=== PATIENT | male | born 1965 | race Caucasian/White ===

== ENCOUNTER 2019-10-20 16:30 | Outpatient (RCR) | payer OTHER, SELFPAY ==
[2018-09-29 14:46] VITALS: BMI 21.1
--- NOTE | 2019-09-10 16:22 | HP.PTEVAL ---
Patient's Visit Information NITHIN OLMEDO is a 53 year old M referred to Physical Therapy by Dr. Josiane Saldaña MD with a diagnosis of Ischial Bursitis of L side. Date of Evaluation: 09/10/19 Physical Therapist: LADONNA Singh - Visit Plan Frequency: 2x /Week Duration: 6 Weeks Plan: 2X/ week for 6 weeks for centralization of symptoms using extension priniciple, neutral spine core stability, postural exercises with HEP and modalities as needed.... also once we have centralization work on L foot DF strengthening exercises. - Subjective Findings: Pt reports that he has a pain in his butt on the L side and she gave him a shot. The next night was better. Sunday he could not sit to drive to [place]. He is not sure if the shot has helped or not. Once he gets up and walk around for awhile he feels fine and when he gets home this evening... he will be able to go to sleep but he will wake up in the middle of the night. He sleeps on his R side. Sitting is the worst. He points to the lateral side of his hip and he feels that it is coming on and then stays there until he stands up. He has back pain that started Sunday but no back pain today. He started to get cramping in his legs last night. He feels like he is slapping his L foot with walking but he feels that it might be getting better. - Pain L hip pain Pain Intensity (Out of 10): 4 Comment: the longer he sits on it the worse it gets Back pain Pain Intensity (Out of 10): 2 - Objective Gait: decreased ability to picker tender helper his L foot with gait. LE MMT: B hip flex 4/5, L hip abd 4-/5 and R 4/5, B hip ext 4/5, B knee flex and knee ext 4+/5. Unable to toe raise on the L but able to heel raise B. Trunk AROM: Flexion 75%, ext 75%, SB B 75%, Rot B 75%. Repeated flexion in sitting X 3 and his L buttock pain increased and then Repeated extension in standing X 10 and his pain went away. Tried sitting with extreme upright posture and made his pain not come back as quick. +SLR on the L for L groin pain. + SLUMP test on the L for the same type of pain that he has been having in his L hip. Press ups 3 X 10.... pt's had no buttock pain and he was able to raise his L foot up higher than he could at first. Explained proper posture and upright posture to the pt and demonstrated the improtance of a towel roll when sitting and no use of bucket seats in his car. - Goals Goal 1:: STG: I HEP Goal Time Frame: 2-4 Weeks Goal 2:: STG: decrease buttock pain by 50% Goal Time Frame: 2-4 Weeks Goal 3:: LTG: abolish symptoms to be able to sleep through the night and be able to drive for 30 minutes with out the pain. Goal Time Frame: 4-6 Weeks Goal 4:: Increase L hip abd strength and L DF strength by 1/2 muscle grade (LE MMT: B hip flex 4/5, L hip abd 4-/5 and R 4/5, B hip ext 4/5, B knee flex and knee ext 4+/5. Unable to toe raise on the L but able to heel raise B). Goal Time Frame: 4-6 Weeks - Rehabilitation Potential Rehabilitation Potential: Good - Anticipated Interventions Patient/Client Instruction: Educate patient on: Condition, Plan of Care For the Purpose of:: To decrease pain, To decrease swelling/inflammation, To increase ROM, To improve nutrient delivery to tissue, To increase oxygenation perfusion, To improve muscle performance and motor function, To improve ability to perform ADL's, To increase tolerance to activity/condition/position, To improve performance and independence with ADL's, To improve ability of physical actions for home/community/work/leisure, To improve gait and locomotor functions, To increase flexibility/ROM Therapeutic Exercise to Include: Strength training, Body mechanics, Postural training, Flexibilty training, Neuromotor development, Passive ROM, Active ROM, Dynamic Lumbar Stabilization, Nolberto Exercises For the Purpose of:: To decrease pain, To increase ROM, To improve nutrient delivery to tissue, To improve muscle performance and motor function, To improve ability to perform ADL's, To increase tolerance to activity/condition/position, To decrease level of supervision to perform tasks, To improve ability of physical actions for home/community/work/leisure, To increase flexibility/ROM Manual Therapy Techniques to Include: Mobilization For the Purpose of:: To decrease pain, To increase ROM, To improve nutrient delivery to tissue, To improve muscle performance and motor function, To improve ability to perform ADL's, To increase tolerance to activity/condition/position, To improve ability of physical actions for home/community/work/leisure, To improve health of tissue, To decrease soft tissue restriction IF ES: Yes Cryotherapy (ice pack, ice massage): Yes Thermo therapy (hot pack): Yes For the Purpose of:: To decrease pain, To decrease swelling/inflammation, To increase ROM, To improve nutrient delivery to tissue Thank you for the opportunity to evaluate your patient. For Medicare and Medicare HMO plans, please review the plan of care and approve it. It will need to be FAXED BACK to us at [phone] for Medicare purposes. For Medicare only, by signing this I certify the plan of care. Please let me know if there are questions or concerns regarding this plan of care. Physician Signature: Date:
--- NOTE | 2019-10-20 16:45 | HP.PTDCSUM ---
HP - PT D/C Summary It has been my pleasure to treat NITHIN OLMEDO under orders from Dr. Josiane Saldaña MD, for the diagnosis of Ischial Bursitis of L side for a total of 9 visit(s). Discharge Date: Please see the following information for a summary of their discharge status. - Subjective Subjective: Patient reports that he has no pain- he overdid a lot this weekend and he went walking in the [place]- no pain. Does not feel any leg weakness or drop foot. No problems with driving. Sleeping through the night and no soreness in the AM. Is able to do the exercises in the AM without issues or questions. - Pain L hip pain Pain Intensity (Out of 10): 4 Back pain Pain Intensity (Out of 10): 3 - Overall Improvement % Improvement: 100 - Objective Objective/Function: Gait: no deviation noted- no foot slap. LE MMT: B hip flex 4+/5, L hip abd 4/5 and R 4+/5, B hip ext 4+/5, B knee flex and knee ext 5/5 DF: left: 4/5, right: 5/5. HR/TR: able but TR is diminished by 50% on the left Trunk AROM: WNL in all planes. Sensation/Reflex: WNL, Flex: hamstring: moderate Gastroc: mild - Goals Goal 1:: STG: I HEP Goal Progress: Goal Met Goal 2:: STG: decrease buttock pain by 50% Goal Progress: Goal Met Goal 3:: LTG: abolish symptoms to be able to sleep through the night and be able to drive for 30 minutes with out the pain. Goal Progress: Goal Met Goal 4:: Increase L hip abd strength and L DF strength by 1/2 muscle grade (LE MMT: B hip flex 4/5, L hip abd 4-/5 and R 4/5, B hip ext 4/5, B knee flex and knee ext 4+/5. Unable to toe raise on the L but able to heel raise B). Goal Progress: Goal Met - Plan Plan: Discharge to home exercise program - D/C Information If there are questions or concerns regarding this patient's physical therapy, please feel free to call me at [phone]. Thank you for the referral of this patient. Sincerely, Valentina Moreau DPT
== END 2019-10-20 19:00 | disposition home or self-care (01) ==
LOC: PT 16:30
PROVIDERS: Family Provider Family Medicine; PCP Family Medicine; Referring Provider Family Medicine; Visit Provider Family Medicine
DX: M70.72 Other bursitis of hip, left hip (principal)
CPT/HCPCS: 97110; 97161; 97164

== ENCOUNTER → 2019-11-05 09:34 | Outpatient (CLI) | payer OTHER, SELFPAY ==
[2018-09-29 14:46] VITALS: BMI 21.1
[2019-11-05 12:42] LABS: Anion Gap 5 (5-15); BUN 10 mg/dL (7-18); BUN/Creat Ratio 12.4 RATIO (10-20); Calcium,Total 8.9 mg/dL (8.5-10.1); Chloride 111 mmol/L (98-107); Cholesterol 167 mg/dL (200); EST Glomerular Filtration Rate 107 mL/min (>60); Est Glom Filt Rate - Afr Amer 130 mL/min (>60); Glucose 102 mg/dL (74-106); High Density Lipoprotein 35 mg/dL; Potassium 4.3 mmol/L (3.5-5.1); Sodium Level 140 mmol/L (136-145); Triglycerides 109 mg/dL; Very Low Density Lipoprotein 22 mg/dL (5-40)
== END ==
PROVIDERS: PCP Family Medicine; Referring Provider Family Medicine; Visit Provider Nurse Practitioner Adult Health
DX: Z13.1 Encounter for screening for diabetes mellitus (principal); Z13.220 Encounter for screening for lipoid disorders
CPT/HCPCS: 36415; 80048; 80061

== ENCOUNTER 2020-01-12 07:34 | Day surgery (SDC) | payer OTHER, SELFPAY ==
[2019-12-29 14:57] VITALS: BMI 21.1
--- NOTE | 2019-12-30 10:29 | HP_ITS ---
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 Chris London MD) Smoking Status: Current every day smoker alcohol intake: current alcohol intake frequency: a few times a week substance use type: marijuana HPI HPI HPI: NITHIN OLMEDO is a 54 M who presents to the office today for HPI HPI Surgical H&P: Yes HPI: thomas CRAVEN a 54 M who presents to the office today for Evaluation for a positive Cologuard test. Patient was seen by his primary care physician Cologuard test was positive.He has not noticed any change in his bowel or bladder habits. His father had colon cancer at age 62 and with metastatic disease at age 66. ROS General General: No weight change, appetite, fatigue, colon cancer, breast cancer or weakness HEENT HEENT: No difficulty swallowing, eye injury, eye surgery, swollen glands or hoarseness Endo Endocrine: No thyroid disease, diabetes mellitus, thyroid cancer, Hair loss, heat intolerance or cold intolerance Skin Skin: No rash or changing moles Breast Breast: No left breast lump, right breast lump, nipple discharge, breast pain, abnormal mammogram, abnormal US or breast enlargement Musc Musculoskeletal: Yes back problems; no arthritis, rheumatoid arthritis, gout or joint pain Cardio Cardiovascular: No murmur, pacemaker, heart disease, atrial fibrillation, high blood pressure, heart attack, heart stent, palpitations, shortness of breat with exertion or chest pain Psych Psychiatric: No depression, anxiety or hearing voices Resp Respiratory: No shortness of breath, No sleep apnea, No cough, No COPD, No asthma, No emphysema, No wheezing Gastro Gastrointestinal: No abdominal pain, No nausea or vomiting, No diarrhea, No constipation, No blood in stool, No acid reflux, No hemorrhoids, No ulcers, No gallbladder problem, No black,tarry stools Callum Hematologic: No blood thinners, No blood disorders, No bleeding, No anemia, No blood clots Neuro Neurologic: No system reviewed and no additional complaints, except as docu, No as per HPI, No abnormal walking, No abnormal hearing, No abnormal movements, No abnormal speech, No behavioral changes, No burning sensations, No confusion, No seizure-like activity, No unsteadiness, No dizziness, No localized weakness, No frequent falls, No headache(s), No lack of coordination, No loss of vision, No memory loss, No numbness, No other visual disturbances, No radiating pain, No restless legs, No sensory deficit, No fainting, No tingling, No tremor(s), No weakness, No other Exam Const General: no acute distress, well developed, well hydrated Orientation: oriented to person, oriented to place, oriented to time [facility] Head: normocephalic, atraumatic Ears: external ears normal Mouth: moist mucous membranes Eyes Sclera: sclerae normal Pupils: normal by confrontation Neck Neck: no lymphadenopathy noted Neck mass: No Thyroid: thyroid normal, symmetrical Chest Chest palpation & inspection: normal inspection of the chest Breast Palpation: No nipple discharge Resp Effort & Inspection: normal respiratory effort Auscultation: clear to auscultation bilaterally Percussion: percussion normal Cardio Rate: regular rate Rhythm: regular rhythm Heart Sounds: no murmurs GI Palpation: soft, no hepatosplenomegaly, no masses, nontender Rectal Exam: other Other: Rectal exam deferred. Extrem General: normal to inspection, no clubbing, cyanosis or edema Assessment & Plan Problems 1. Positive colorectal cancer screening using Cologuard test R19.5 Plan I have discussed the above with the patient. I have offered the patient colonoscopy for evaluation. I have explained the risks/benefits of the procedure and described the procedure. I have discussed the risks with the patient, including but not limited to: infection, bleeding, perforation of the GI tract requiring emergency surgery, inability to complete the procedure, injury to any internal organs, complications of anesthesia, etc. - the patient understands and agrees to proceed. I have answered all the patient's questions to the patient's satisfaction and the patient has no further questions. The patient has been given instructions for the colon cleansing preparation. Coding Level of Care Code Off vis,new,level 3 Diagnoses Positive colorectal cancer screening using Cologuard test R19.5 12/30/19 1030 <Electronically signed by Chris London MD> Date Chris London MD I have re-examined the patient. There are no clinical changes since date of exam.
[2020-01-12] VITALS (7 sets, daily range): BP systolic 101–127; BP diastolic 72–91; PULSE 64–91; RESP 15–18; TEMP 36.2–36.7; O2SAT 94–99; BMI 22.1
[2020-01-12] MEDS: Lactated Ringers 1,000 ML 100 ML IV (08:14)
--- NOTE | 2020-01-12 08:45 | COLBX_PTH ---
PATIENT: NITHIN OLMEDO LOC: EN U#:[id number] AGE/SX: 54/M ROOM: RE01/12/[address]: Dr. Chris London MD : 1965 BED: DIS: 01/12/2020 SPEC #: [id number] RECD: 01/12/20 13:29 STATUS: MILES REJocelynn #: [id number] MICHELLE: 01/12/20 08:[address]: Chris London DEPT: SURGICAL PATHOLOGY RECD BY: Warren Can ENTERED: 01/13/20 09:20 SP TYPE: COLON BX OTHR DR: Dr. Josiane Saldaña MD Tissues: Sigmoid colon biopsy Procedures: Surgery Specimen Level IV HEADER OPERATION: Colonoscopy (MAC) PRE-OP DIAGNOSIS: Positive Cologuard test TISSUE SUBMITTED: Sigmoid colon polyp MICROSCOPIC DIAGNOSIS Sigmoid colon polyp, biopsy: Tubular adenoma. SJ:jose 01/14/20 MICROSCOPIC DESCRIPTION Slides are reviewed. GROSS DESCRIPTION Received in fixative is one container labeled with the patient's name and designated sigmoid polyp. The specimen consists of a piece of trevino-pink polyp measuring 1.5 x 1.5 x 0.8 cm. The apparent base is inked. The polyp is serially and submitted entirely in one cassette. / SJ:rg 01/13/20 TC:1 CPT: 07269
--- NOTE | 2020-01-12 09:19 | OP.COLON_ITS ---
Patient Name: Real Jones Procedure Date: 01/12/2020 8:51 AM Date of : 1965 Age: 54 Procedure: Colonoscopy Indications: Positive Cologuard test Providers: Chris London MD Referring MD: Josiane Saldaña Medicines: See the Anesthesia note for documentation of the administered medications Patient Profile: This is a 54 year old male. Refer to note in patient chart for documentation of history and physical. Last Colonoscopy: none. The patient's first colonoscopy is today. Complications: No immediate complications. Procedure: Pre-Anesthesia Assessment: - Prior to the procedure, a History and Physical was performed, and patient medications and allergies were reviewed. The patient's tolerance of previous anesthesia was also reviewed. The risks and benefits of the procedure and the sedation options and risks were discussed with the patient. All questions were answered, and informed consent was obtained. Prior Anticoagulants: The patient has taken no previous anticoagulant or antiplatelet agents. ASA Grade Assessment: II - A patient with mild systemic disease. After reviewing the risks and benefits, the patient was deemed in satisfactory condition to undergo the procedure. After I obtained informed consent, the scope was passed under direct vision. Throughout the procedure, the patient's blood pressure, pulse, and oxygen saturations were monitored continuously. The adult colonoscope was introduced through the anus and advanced to the cecum, identified by appendiceal orifice and ileocecal valve. The colonoscopy was performed without difficulty. The patient tolerated the procedure well. The quality of the bowel preparation was good. Scope In: 9:01:12 AM Scope Withdrawal Time 0 hours 9 minutes 43 seconds Scope Out: 9:13:12 AM Total Procedure Duration Time 0 hours 12 minutes 0 seconds Findings: A 15 mm polyp was found in the sigmoid colon. The polyp was sessile. The polyp was removed with a hot snare. Resection and retrieval were complete. The entire examined colon appeared normal on direct and retroflexion views. Impression: - One 15 mm polyp in the sigmoid colon, removed with a hot snare. Resected and retrieved. - The entire examined colon is normal on direct and retroflexion views. Recommendation: - Discharge patient to home. - Resume previous diet. - Continue present medications. - Await pathology results. - Repeat colonoscopy in 5 years for surveillance. - Return to GI office in 1 week. Procedure Code(s): --- Professional --- 90445, Colonoscopy, flexible; with removal of tumor(s), polyp(s), or other lesion(s) by snare technique Diagnosis Code(s): --- Professional --- D12.5, Benign neoplasm of sigmoid colon R19.5, Other fecal abnormalities CPT copyright 2017 [employer]. All rights reserved. The codes documented in this report are preliminary and upon clinical coder review may be revised to meet current compliance requirements. MD Chris Fonseca MD 01/12/2020 9:18:53 AM This report has been signed electronically. Number of Addenda: 0 Note Initiated On: 01/12/2020 8:51 AM
--- NOTE | 2020-01-12 09:19 | OP.CCLET_ITS ---
01/12/2020 Josiane Saldaña [address] [place] [address] Re : Colonoscopy procedure for [facility] Dear Dr. Saldaña This procedure was performed on Sunday, January 12, 2020. My impressions and recommendations are as follows: Impressions : - One 15 mm polyp in the sigmoid colon, removed with a hot snare. Resected and retrieved. - The entire examined colon is normal on direct and retroflexion views. Recommendations : - Discharge patient to home. - Resume previous diet. - Continue present medications. - Await pathology results. - Repeat colonoscopy in 5 years for surveillance. - Return to GI office in 1 week. My findings are described in the full procedure note, which is enclosed. If I can be of further assistance, please feel free to contact me at Doctor phone number(s): , Fax: [phone], Work: . Sincerely, MD Chris Fonseca MD 01/12/2020 9:18:53 AM This report has been signed electronically.
== END 2020-01-12 10:01 | disposition home or self-care (01) ==
LOC: EN 07:35 → AC 07:35
PROVIDERS: PCP Family Medicine; Referring Provider Family Medicine; Visit Provider Surgery
PROC: 0DJD8ZZ Inspection of Lower Intestinal Tract, Via Natural or Artificial Opening Endoscopic (ICD-10-PCS; CPT 45378; principal; 2020-01-12 08:40)
DX: R19.5 Other fecal abnormalities (principal); D12.5 Benign neoplasm of sigmoid colon; F17.200 Nicotine dependence, unspecified, uncomplicated; Z79.1 Long term (current) use of non-steroidal anti-inflammatories (NSAID); Z80.0 Family history of malignant neoplasm of digestive organs; Z11.59 Encounter for screening for other viral diseases
CPT/HCPCS: 45385; 87635; 88305; G2023; J7120; J1610; U0002

== ENCOUNTER 2020-02-01 16:17 | Emergency (ER) | payer OTHER, SELFPAY ==
[2020-01-12 08:03] VITALS: BMI 22.1
[2020-02-01 16:18] VITALS: PULSE 78; RESP 18; TEMP 35.3; O2SAT 98; BMI 23.3
--- NOTE | 2020-02-01 16:31 | CT_ITS ---
STUDY: CT ABDOMEN AND PELVIS WITH CONTRAST REASON FOR EXAM: Male, 54 years old. LT SIDE ABD PAIN N/V. Prior appendectomy. Hx of kidney stones RADIATION DOSAGE (If Supplied By Facility): CTDIvol = ( 16.88 ) mGy, DLP = ( 564.16 ) mGycm TECHNIQUE: Transaxial images were obtained from the dome of the diaphragm to the symphysis pubis without oral contrast. Oral and amp; IV Gastrografin and amp; 100mL Isovue-370 was administered. Sagittal and coronal images were reconstructed. Individualized dose optimization techniques were used for this CT. COMPARISON: None. FINDINGS: There is minimal dependent atelectasis within the lower lobes. The visualized portions of the heart are within normal limits. There is decreased attenuation of the liver consistent with steatosis. There is hepatomegaly. Normal gallbladder and extrahepatic biliary system. Normal spleen. Normal pancreas. Normal bilateral adrenal glands. There is a right renal cyst. There is left-sided hydroureteronephrosis secondary to a 3.6 mm calculus within the distal ureter just proximal to the ureterovesicular junction. Normal visualized stomach. Normal small intestine. There are multiple colonic diverticula consistent with diverticulosis. The appendix is surgically absent. There are scattered peripheral calcifications of the abdominal aorta consistent with atherosclerosis. Normal inferior vena cava. Normal retroperitoneum. Normal urinary bladder. Normal abdominal wall. There are diffuse degenerative changes of the visualized lumbar spine. There is a grade 1 anterior spondylolisthesis of L5 on S1 secondary to bilateral L5 pars defects. CT/Abdomen/Pelvis WITH Contrast IMPRESSION: Left hydroureteronephrosis secondary to a 3.6 mm calculus within the distal ureter. Fatty infiltration of the liver associated with hepatomegaly. Bilateral L5 pars defect associated with a grade 1 anterior spondylolisthesis of L5 on S1. Atherosclerosis. Electronically Signed: aMrie Romero MD at 18:46 EDT Tel , Service support ,
--- NOTE | 2020-02-01 16:32 | ED.DCSUM_ITS ---
History of Present Illness Chief Complaint: Abd Pain Informant: Patient Onset: Today Narrative: Patient states that early in the morning he developed a left upper abdominal pain. He states it is been progressively worsening but over the past several hours very constant. He notes some vomiting. He states that nothing seems to make it better or worse. He has had a kidney stones in the past but states this feels different. He had a recent colonoscopy which found a tubular adenoma but no history of colitis or diverticulitis. He denies any testicular pain. He does not feel distended or bloated. No fevers. No recent illnesses. He has had a prior appendectomy. States that yesterday he was in his normal state of health. He was able to eat breakfast but has had some anorexia since. He had a bowel movement that he states was normal today. Past Medical History - Allergies and Home Meds Allergies/Adverse Reactions: Allergies bupropion [From Wellbutrin] Allergy (Verified 02/01/20 16:18) Swelling paroxetine [From Paxil] Allergy (Verified 02/01/20 16:18) Swelling Primary Care Physician: Josiane Saldaña MD [Primary Care Provider] - Smoking Status: Current every day smoker Review of Systems General: Denies: Chills, Fever, Sweats Eyes: Denies: Visual changes - bilaterally, Diplopia ENT: Denies: Rhinorrhea, Sore throat Cardiovascular: Denies: Chest pain, Palpitations Respiratory: Denies: Dyspnea, Cough, Dyspnea on exertion Gastrointestinal: Reports: Abdominal pain, Nausea, Vomiting. Denies: Diarrhea, Constipation, Melena, Hematochezia Genitourinary: Denies: Dysuria, Hematuria, Frequency Musculoskeletal: Denies: Back pain, Extremity Pain Skin: Denies: Rash, Wounds Neurological: Denies: Headache, Weakness, Numbness Physical Exam Vital Signs/Narrative: Vital Signs Temp Pulse Resp Pulse Ox 02/01/20 16:18 95.5 F L 78 18 98 Inital Vital Signs reviewed: Yes General: Well nourished, Well developed, No Acute Distress, - - Patient appears uncomfortable in the bed. Head: Normocephalic, Atraumatic Eyes: Perrl, EOMI ENT: Moist mucous membranes, No rhinorrhea Neck: Supple, Nontender Cardiovascular: Regular rate, Regular rhythm, No murmurs Respiratory: No distress, CTA bilaterally, Chest nontender Abdomen: Soft, Nontender, Nondistended, Normal bowel sounds Back: Nontender, Normal Inspection Extremities: Nontender, No edema Skin: Normal color, No rash Neurological: Alert, Oriented x3, Cranial nerves II-XII grossly intact, Normal Strength, Normal Sensation Psychological: Normal affect, Normal Mood ED Disposition - Plan for ED Patient: Disposition: Home or Assisted Living Diagnosis: Renal colic on left side, Ureterolithiasis, Hydroureter on left Instructions: ED Renal Stone w Colic Prescriptions: Hydrocodone Bitart/Apap 5-325 [[place] 5MG-325MG] 1 tab PO Q6H PRN PRN 5 Days #20 tab PRN Reason: Pain Prescription Printed Ondansetron [Zofran Odt] 4 mg PO Q8H PRN PRN #14 tab PRN Reason: Nausea Prescription Printed Referrals: Josiane Saldaña MD [Primary Care Provider] - As Needed Marcos Umana MD [STAFF PHYSICIAN] - (for urology if not improving/passin g the stone)
[2020-02-01] MEDS: Ondansetron 4 MG/2 ML Vial IV (16:41)
[2020-02-01] MEDS: Morphine 4 MG/ML Syringe IV (16:41)
[2020-02-01] MEDS: 0.9% Normal Saline 1,000 ML 250 ML IV (16:41)
[2020-02-01 16:45] VITALS: BP 144/99
[2020-02-01 16:51] LABS: Absolute Lymphocyte Count 2.67 X10^3/uL (0.83-4.51); Absolute Neutrophil Count 8.6 X10^3/uL (2.0-7.7); Basophil% 0.8 % (0-1); Eosinophil# 0.16 X10^3/uL; Eosinophils% 1.3 % (0-5); Hematocrit 41.9 % (40-54); Hemoglobin 13.5 g/dL (13.0-16.5); Lymphocyte # 2.67 X10^3/ul (4.0); Lymphocyte % 21.5 % (19-41); Mean Corp Hgb Conc 32.2 g/dL (32-36); Mean Corpuscular Hgb 31.3 pg (27.0-32.0); Mean Corpuscular Volume 97.2 fL (80-94); Mean Platelet Vol. 9.7 fl (6.2-12.0); Monocyte% 7.2 % (0-10); NRBC Flagged by Analyzer 0 % (0-5); Neutrophil # 8.56 X10^3/uL (2.7-7.7); Neutrophil % 68.9 % (47-70); Platelet Count 357 K/mm3 (150-450); RBC Distribution Width CV 13.2 % (11.6-14.6); RBC Distribution Width SD 47.4 fl (35.1-43.9); Red Blood Count 4.31 M/mm3 (4.6-6.2); White Blood Count 12.4 K/mm3 (4.4-11.0)
[2020-02-01 17:06] LABS: AST(SGOT) 24 U/L (15-37); Alanine Aminotransfer ALT/SGPT 35 U/L (16-61); Albumin, Serum 3.8 g/dL (3.2-5.0); Alkaline Phosphatase 93 U/L (45-117); Anion Gap 6 (5-15); BUN 12 mg/dL (7-18); BUN/Creat Ratio 13.6 RATIO (10-20); Bilirubin, Direct 0.11 mg/dL (0.00-0.30); Calcium,Total 8.7 mg/dL (8.5-10.1); Chloride 108 mmol/L (98-107); Creatinine, Serum 0.88 mg/dL (0.70-1.30); EST Glomerular Filtration Rate 96 mL/min (>60); Est Glom Filt Rate - Afr Amer 117 mL/min (>60); Estimated Creatinine Clearance 88.61 ml/min; Globulin 3.6 g/dL (2.2-4.2); Glucose 122 mg/dL (74-106); Lipase 69 U/L (73-393); Potassium 3.5 mmol/L (3.5-5.1); Protein, Total 7.4 g/dL (6.4-8.2); Sodium Level 143 mmol/L (136-145)
[2020-02-01 18:34] VITALS: BP 146/88; PULSE 56; RESP 16; O2SAT 97
[2020-02-01 19:07] LABS: Bacteria 0 SEEN /hpf (None Seen); Color, Urine Yellow (Yellow); Glucose, Dipstick Normal (Normal); Ketone-Dipstick Negative (Negative); Leukocyte Esterase-Dipstick Negative /ul (Negative); Mucous, Urine 0 SEEN /hpf (<or=2+); Nitrite-Dipstick Negative (Negative); Occult Blood-Urine 50 /ul (Negative); Protein-Dipstick 15 mg/dl (Negative); Squamous Epithelial Cells - UA 0 SEEN /hpf (0-5); Urine Bilirubin Dipstick Negative (Negative); Urine Urobilinogen Normal (Normal); Urine pH 6.5 (5.0 - 8.0); White Blood Cells 0 SEEN /hpf (0-5)
[2020-02-01 19:08] LABS: Urine Clarity Clear (Clear)
[2020-02-01 19:15] LABS: Red Blood Cells-Urine 0-5 SEEN /hpf (0-5)
[2020-02-01] MEDS: Ketorolac 30 MG/ML Syringe IV (19:29)
[2020-02-01 20:04] VITALS: RESP 16
--- NOTE | 2020-02-01 20:04 | ED.RN ---
PT AMBULATED OUT OF ED, GAIT STEADY. NO DISTRESS NOTED.
== END 2020-02-01 20:05 | disposition home or self-care (01) ==
PROVIDERS: Emergency Provider Emergency Medicine; PCP Family Medicine
DX: N20.0 Calculus of kidney (principal); F17.200 Nicotine dependence, unspecified, uncomplicated; Z87.442 Personal history of urinary calculi
CPT/HCPCS: 74177; 80048; 80076; 81001; 83690; 85025; 96361; 96374; 96375; 99283; J7030; Q9967; A4216; J2405

== ENCOUNTER → 2020-11-22 14:44 | Outpatient (CLI) | payer OTHER, SELFPAY | PROVIDERS: PCP Family Medicine; Referring Provider Family Medicine; Visit Provider Family Medicine | DX: Z00.00 Encounter for general adult medical examination without abnormal findings (principal) ==

== ENCOUNTER 2021-11-25 09:22 | Outpatient (CLI) | payer BC, SELFPAY ==
[2021-11-25 10:30] LABS: BUN 9 mg/dL (7-18); BUN/Creat Ratio 10.1 RATIO (10-20); Calcium,Total 8.8 mg/dL (8.5-10.1); Chloride 107 mmol/L (98-107); Cholesterol 155 mg/dL (200); Creatinine, Serum 0.89 mg/dL (0.70-1.30); EST Glomerular Filtration Rate 94 mL/min (>60); Est Glom Filt Rate - Afr Amer 114 mL/min (>60); Glucose 122 mg/dL (74-106); Sodium Level 137 mmol/L (136-145); Triglycerides 110 mg/dL
[2021-11-25 10:31] LABS: Anion Gap 3 (5-15); High Density Lipoprotein 32 mg/dL; PSA,Total - Annual Screen 1.61 ng/mL (0.00-4.00); Very Low Density Lipoprotein 22 mg/dL (5-40)
[2021-11-25 12:58] LABS: Vitamin D,25 Hydroxy 21.8 ng/mL
== END 2021-11-25 23:59 | disposition home or self-care (01) ==
LOC: MFPLAB 09:27
PROVIDERS: PCP Family Medicine; Referring Provider Family Medicine; Visit Provider Family Medicine
DX: Z00.00 Encounter for general adult medical examination without abnormal findings (principal)
CPT/HCPCS: 36415; 80048; 80061; 82306; 84153; G0103

== ENCOUNTER → 2022-12-01 | Outpatient (CLI) | payer BC, SELFPAY ==
[2022-12-01 11:02] LABS: Anion Gap 7 (5-15); BUN 15 mg/dL (7-18); BUN/Creat Ratio 18.6 RATIO (10-20); Calcium,Total 8.7 mg/dL (8.5-10.1); Chloride 105 mmol/L (98-107); Cholesterol 152 mg/dL (200); Creatinine, Serum 0.81 mg/dL (0.70-1.30); EST Glomerular Filtration Rate 106 mL/min (>60); Est Glom Filt Rate - Afr Amer 128 mL/min (>60); Glucose 95 mg/dL (74-106); High Density Lipoprotein 41 mg/dL; Potassium 4.6 mmol/L (3.5-5.1); Sodium Level 138 mmol/L (136-145); Triglycerides 54 mg/dL; Very Low Density Lipoprotein 11 mg/dL (5-40)
== END | disposition home or self-care (01) ==
LOC: MFPLAB 08:58
PROVIDERS: PCP Family Medicine; Referring Provider Family Medicine; Visit Provider Family Medicine
DX: Z00.00 Encounter for general adult medical examination without abnormal findings (principal)
CPT/HCPCS: 36415; 80048; 80061

== ENCOUNTER → 2024-01-10 | Outpatient (CLI) | payer BC, SELFPAY ==
[2024-01-10 15:19] LABS: Anion Gap 5 (5-15); BUN 21 mg/dL (7-18); BUN/Creat Ratio 22.6 RATIO (10-20); Calcium,Total 9.1 mg/dL (8.5-10.1); Chloride 105 mmol/L (98-107); Cholesterol 181 mg/dL (200); Creatinine, Serum 0.93 mg/dL (0.70-1.30); EST Glomerular Filtration Rate 89 mL/min (>60); Est Glom Filt Rate - Afr Amer 108 mL/min (>60); Glucose 117 mg/dL (74-106); High Density Lipoprotein 51 mg/dL; PSA,Total - Annual Screen 3.07 ng/mL (0.00-4.00); Potassium 3.9 mmol/L (3.5-5.1); Sodium Level 139 mmol/L (136-145); Triglycerides 108 mg/dL; Very Low Density Lipoprotein 22 mg/dL (5-40)
== END | disposition home or self-care (01) ==
LOC: MFPLAB 11:27
PROVIDERS: PCP Family Medicine; Visit Provider Family Medicine
DX: Z00.00 Encounter for general adult medical examination without abnormal findings (principal)
CPT/HCPCS: 36415; 80048; 80061; 84153; G0103

== ENCOUNTER 2024-01-30 17:00 | Outpatient (RCR) | payer BC, SELFPAY ==
--- NOTE | 2023-12-19 18:59 | HP.OTEVAL_ITS ---
Patient's Visit Information Visit Information Visit Information: NITHIN OLMEDO is a 58 year old M, referred to Occupational Therapy by TESSIE Shipley, with a diagnosis of sprain of right wrist and hand , primary OA of R wrist. Date of Evaluation: 12/19/23 Occupational Therapist: Jodi Thomas Subjective Subjective: This 58 year old male with pain in R wrist for approx 3-4 weeks. pt states he believes it could have happened from pushing something. pt went to get an X ray no fx. per x ray only saw slight seperation in carpals pt unable to ID any other specifics. pt reports having an old scapholunate fx many years ago. pt arrives in wrist cock up brace that his had. pt has been wearing it for the past three weeks. pt states he has been wearing it during day to work and at night. Pt works as a machinest work change booth attendant. pt biggest limiting factor is the pain. pt did not receiving a lifting restriction. pt is R hand dominant. Pain R wrist: Current Pain Intensity: 7 Objective Objective/Observation: pt arrives this date for eval with R wrist cock up orthosis on. pt reports wearing this during the day and at night for last three weeks. states pain has gotten much better but not yet 100%. ROM Shoulder: wfl Elbow: wfl Forearm: wfl Wrist: R 45/45 L 60/65 CMC: wfl MP: wfl IP: wfl Radial Abduction: wfl Palmar Abduction: wfl Opposition: wfl MP: wfl PIP: wfl DIP: wfl ROM Comments: R radial deviation 20 degrees ulnar deviation 15 degrees L radial deviation 20 degrees ulnar deviation 30 degrees Strength Lab Director: L 100 pounds R 70 pounds Lateral Pinch: L 12 pounds R 8 pounds Tripod Pinch: L 12 pounds R 10 pounds Strength Comments: denies any strength issues at shoulder bicep or tricep Edema Wrist: R 17 cm L 17 cm Sensation Sensation Comments: denies numbness or tingling does report an occ numbness at night Nine Hole Peg Right: 29 sec Left: 28 sec Quick DASH-Disab of Arm,Shoulder& Hand Quick DASH Score: 36.3625 Goals Goal:: pt will increase R laborer concrete paving strength equal to or greater then non affected UE (LUE 100 pounds) within 6 weeks Goal:: pt will improve R wrist flexion to 60 degrees in order to maximize I in IADL and work related activities within 6 weeks pt will improve R wrist extension to 60 degrees in order to maximize I in IADL and work related activities within 6 weeks pt will improve R wrist ulnar deviation to 25 degrees in order to maximize I in IADL and work related activities within 6 weeks Goal:: pt will decrease R wrist pain to 2/10 or less within 6 weeks Goal:: pt will demonstrate/ verbalize 100% accuracy in joint protection and proper job related ergonomics within 6 weeks Goal:: pt will improve quick dash score to score of 20 or less within 6 weeks Rehabilitation Rehabilitation Potential: Good Anticipated Interventions Anticipated Interventions: A/AAROM/PROM, Strengthening, Massage, Triggerpoint Release, Modalities, Joint Protection/Energy Conservation, Ergonomic Education, Education re Diagnosis, Education re Self Massage Techniques and Home Program Visit Plan Frequency: 2x /Week Duration: 6 Weeks General Plan: A/AAROM/PROM strengthening pain management modalities trigger point massage TEXT: Thank you for the opportunity to evaluate your patient. For Medicare and Medicare HMO plans, please review the plan of care and approve it. It will need to be FAXED BACK to us at [phone] for Medicare purposes. Please let me know if there are questions or concerns regarding this plan of care. Physician Signature: Date:
--- NOTE | 2024-03-26 15:38 | HP.OT.NRP ---
Patient Information Patient Information: NITHIN OLMEDO was seen in my office for initial evaluation on 12/19/23. The following Plan of Care was established for this patient: POC Established Initial Frequency: 2x /Week Initial Duration: 6 Weeks Plan: tendon glide modalities pain management short arc wrist ROM Anticipated Interventions Anticipated Interventions: A/AAROM/PROM, Strengthening, Massage, Triggerpoint Release, Modalities, Joint Protection/Energy Conservation, Ergonomic Education, Education re Diagnosis, Education re Self Massage Techniques and Home Program Last Seen Last Seen: This patient was last seen in our office 01/30/24. Pertinent comments regarding their Occupational therapy will appear below: This 58 year old male referred to OT due to wrist sprain. pt seen for eval and 5 additional visits before not returning. progress was made in pain management as well as joint protection and positioning. discharge due to lapse in time. At this point I will be discontinuing this patient from occupational therapy. I would be happy to see this patient again in the future if found appropriate by the physician. Thank you! Jodi Thomas
== END 2024-01-30 19:00 | disposition home or self-care (01) ==
LOC: OT 17:00
PROVIDERS: PCP Family Medicine; Referring Provider Physician Assistant; Visit Provider Physician Assistant
DX: S63.8X1D Sprain of other part of right wrist and hand, subsequent encounter (principal); M19.031 Primary osteoarthritis, right wrist; M25.531 Pain in right wrist
CPT/HCPCS: 97035; 97140; 97166; 97530

== ENCOUNTER → 2025-01-09 | Outpatient (CLI) | payer BC, SELFPAY ==
[2025-01-09 10:33] LABS: Absolute Lymphocyte Count 1.98 X10^3/uL (0.83-4.51); Absolute Neutrophil Count 3.6 X10^3/uL (2.0-7.7); Basophil# 0.06 X10^3/uL; Eosinophil# 0.09 X10^3/uL; Eosinophils% 1.4 % (0-5); Hematocrit 41.9 % (40-54); Lymphocyte # 1.98 X10^3/ul (0.83-4.51); Lymphocyte % 31.5 % (19-41); Mean Corp Hgb Conc 33.4 g/dL (32-36); Mean Corpuscular Hgb 30.6 pg (27.0-32.0); Mean Corpuscular Volume 91.5 fL (80-94); Mean Platelet Vol. 9.7 fl (6.2-12.0); Monocyte# 0.54 X10^3/uL; Monocyte% 8.6 % (0-10); NRBC Flagged by Analyzer 0 % (0-5); Neutrophil % 57.3 % (47-70); Platelet Count 308 K/mm3 (150-450); RBC Distribution Width CV 13.6 % (11.6-14.6); RBC Distribution Width SD 46.4 fl (35.1-43.9); Red Blood Count 4.58 M/mm3 (4.6-6.2); White Blood Count 6.3 K/mm3 (4.4-11.0)
[2025-01-09 11:06] LABS: Hemoglobin A1c 6.4 % (<=5.6)
[2025-01-09 11:21] LABS: ALB/GLOB Ratio 1.5 RATIO (0.9-2.4); AST(SGOT) 25 U/L (<=37); Alanine Aminotransfer ALT/SGPT 21 U/L (<=46); Albumin, Serum 4.4 g/dL (3.5-5.0); Alkaline Phosphatase 93 U/L (40-129); Anion Gap 10 (5-15); BUN 14 mg/dL (4-19); BUN/Creat Ratio 16.9 RATIO (10-20); Calcium,Total 9.3 mg/dL (7.6-11.0); Carbon Dioxide 21.8 mmol/L (21.0-32.0); Chloride 104 mmol/L (98-108); Cholesterol 177 mg/dL (<=200); Creatinine, Serum 0.82 mg/dL (0.70-1.20); EST Glomerular Filtration Rate 103 (>60); Glucose 107 mg/dL (70-99); High Density Lipoprotein 39 mg/dL; Low Density Lipoprotein Calc. 122 mg/dL; PSA,Total - Annual Screen 1.49 ng/mL (0.02-4.00); Potassium 4.3 mmol/L (3.3-5.1); Protein, Total 7.4 g/dL (5.9-8.4); Sodium Level 136 mmol/L (133-145); Total Bilirubin 0.51 mg/dL (0.00-1.30); Triglycerides 83 mg/dL; Very Low Density Lipoprotein 17 mg/dL (5-40); Vitamin D,25 Hydroxy 28.8 ng/mL (30-100)
== END | disposition home or self-care (01) ==
LOC: MFPLAB 08:34
PROVIDERS: PCP Family Medicine; Referring Provider Family Medicine; Visit Provider Family Medicine
DX: R79.89 Other specified abnormal findings of blood chemistry (principal); Z13.220 Encounter for screening for lipoid disorders; Z12.5 Encounter for screening for malignant neoplasm of prostate; Z13.1 Encounter for screening for diabetes mellitus
CPT/HCPCS: 36415; 80053; 80061; 82306; 83036; 84153; 85025; G0103